=== PATIENT | female | born 1970 | race Caucasian/White ===

== ENCOUNTER 2019-07-07 12:19 | Inpatient (IN) ==
[2019-07-07] MEDS ORDERED: cefOXitin 2,000 MG in Water for inj. (sterile) 20 ML IVP ONE (12:51)
[2019-07-07] MEDS ORDERED: Albuterol 2.5 MG/3 ML NEBULIZER IH ONE (12:53)
[2019-07-07] MEDS ORDERED: Ringers Solution, Lactated 1,000 ML IVC SCH (13:00)
[2019-07-07] MEDS ORDERED: Famotidine 20 MG/2 ML VIAL IVP ONE (13:01)
[2019-07-07] MEDS ORDERED: *HR* OxyCODONE Immed Rel 5 MG TABLET PO PRN (13:01)
[2019-07-07] MEDS ORDERED: *HR* Promethazine 25 MG/ML VIAL IVP PRN ×2 (13:01→20:56)
[2019-07-07] MEDS ORDERED: Ondansetron ODT 4 MG TAB.RAPDIS SL ONE (13:01)
[2019-07-07] MEDS ORDERED: Scopolamine Patch 1.5 MG PATCH.TD72 TD ONE (13:01)
[2019-07-07] MEDS ORDERED: *HR* HYDROmorphone (PF) 1 MG/ML SYRINGE IVP PRN (13:01)
[2019-07-07] MEDS ORDERED: Acetaminophen IV 1,000 MG/100 ML INFUS..BTL IVPB ONE (13:01)
[2019-07-07] MEDS ORDERED: *HR* FentaNYL (PF) 100 MCG/2 ML VIAL IVP PRN (13:01)
[2019-07-07] MEDS ORDERED: diazePAM 5 MG TABLET PO ONE (13:01)
[2019-07-07] MEDS ORDERED: *HR* Midazolam HCl 2 MG/2 ML VIAL IVP PRN (13:01)
[2019-07-07] MEDS ORDERED: *HR* Meperidine 25 MG/ML SYRINGE IVP PRN (13:01)
[2019-07-07] MEDS ORDERED: *HR* FentaNYL (PF) 100 MCG/2 ML VIAL ONE (16:45)
[2019-07-07] MEDS ORDERED: *HR* Propofol 200 MG/20 ML VIAL IVP ONE (16:45)
[2019-07-07] MEDS ORDERED: *HR* Midazolam HCl 2 MG/2 ML VIAL ONE (16:45)
[2019-07-07] MEDS ORDERED: *HR* Succinylcholine 200 MG/10 ML VIAL IVP ONE (17:07)
[2019-07-07] MEDS ORDERED: *HR* PHENYLEPHRINE 1,000 MCG/10 ML SYRINGE IVP ONE (17:27)
[2019-07-07] MEDS ORDERED: Dexamethasone 4 MG/ML VIAL ONE (17:56)
[2019-07-07] MEDS ORDERED: Ondansetron 4 MG/2 ML VIAL ONE (17:56)
[2019-07-07] MEDS ORDERED: *HR* Rocuronium Bromide 50 MG/5 ML VIAL ONE (18:07)
[2019-07-07] MEDS ORDERED: *HR* HYDROMORPHONE 2 MG/ML VIAL ONE (19:11)
[2019-07-07] MEDS ORDERED: *HR* Metoprolol 5 MG/5 ML VIAL IVP PRN (20:56)
[2019-07-07] MEDS ORDERED: Naloxone 0.4 MG/ML INJ IVP PRN (20:56)
[2019-07-07] MEDS ORDERED: Ondansetron 4 MG/2 ML VIAL IVP PRN (20:56)
[2019-07-07] MEDS: 0.9 % Sodium Chloride 1,000 ML IVC SCH (21:44)
[2019-07-07] MEDS: Piperacillin/Tazobactam 3.375 GM in 0.9 % Sodium Chloride Mini Bag 100 ML IVPB SCH (23:20)
[2019-07-07] MEDS: *HR* OxyCODONE/APAP 5/325 TABLET PO PRN (23:22)
[2019-07-08] MEDS: *HR* OxyCODONE/APAP 5/325 TABLET PO PRN ×3 (04:33→15:30)
[2019-07-08] MEDS: 0.9 % Sodium Chloride 1,000 ML IVC SCH ×2 (05:32→13:23)
[2019-07-08 06:57] LABS: Basophils % 0.1 %; Hematocrit 39.6 % (35.3-44.9); Hemoglobin 12.7 g/dL (11.5-15.4); Immature Granulocytes % 0.2 % (0-4); Lymphocytes # 0.8 K/mcL (0.6-4.6); Lymphocytes % 9.5 %; Mean Corpuscular HGB Conc 32.1 g/dL (31.6-35.5); Mean Corpuscular Hemoglobin 29.8 pg (28.0-33.3); Mean Platelet Volume 10.4 fL (9.4-12.4); Monocytes # 0.5 K/mcL (0.0-1.3); Monocytes % 5.4 %; Neutrophils # 7.5 K/mcL (1.6-8.9); Platelet Count 254 K/mcL (140-400); Red Blood Count 4.26 M/mcL (3.82-4.97); Red Cell Distribution Width 13.1 % (11.5-14.5); Segmented Neutrophils % 84.8 %; White Blood Count 8.8 K/mcL (4.3-11.1)
[2019-07-08 07:28] LABS: BUN/Creatinine Ratio 12 (6-26); Blood Urea Nitrogen 9 mg/dL (6-20); Calcium 8.3 mg/dL (8.6-10.3); Carbon Dioxide 24 mEq/L (23-29); Chloride 106 mEq/L (98-107); Glucose 121 mg/dL (70-105); Magnesium 2.1 mg/dL (1.6-2.6); Osmolality,Calculated 290 (280-300); Phosphorous 4.3 mg/dL (2.7-4.5); Potassium 4.1 mEq/L (3.5-5.1); Sodium 140 mEq/L (136-145); eGFR For African Americans > 60 (> 60); eGFR For Non-African Americans > 60 (> 60)
[2019-07-08] MEDS ORDERED: Ondansetron 4 MG/2 ML VIAL IVP PRN (09:13)
[2019-07-08] MEDS: Pantoprazole 40 MG VIAL IVP SCH (09:17)
[2019-07-08] MEDS: Topiramate 25 MG TABLET PO SCH (09:17)
[2019-07-08] MEDS: Piperacillin/Tazobactam 3.375 GM in 0.9 % Sodium Chloride Mini Bag 100 ML IVPB SCH ×2 (09:17→15:31)
[2019-07-08] MEDS: Ketorolac 15 MG/ML VIAL IVP SCH ×3 (11:25→23:26)
[2019-07-08] MEDS ORDERED: 0.9 % Sodium Chloride 1,000 ML IVC SCH (15:57)
[2019-07-09] MEDS: *HR* OxyCODONE/APAP 5/325 TABLET PO PRN (04:04)
[2019-07-09 05:39] LABS: Basophils % 0.2 %; Eosinophils # 0.1 K/mcL (0.0-0.6); Eosinophils % 1.4 %; Hematocrit 36.1 % (35.3-44.9); Hemoglobin 11.8 g/dL (11.5-15.4); Immature Granulocytes % 0.3 % (0-4); Lymphocytes # 2.3 K/mcL (0.6-4.6); Lymphocytes % 36.6 %; Mean Corpuscular HGB Conc 32.7 g/dL (31.6-35.5); Mean Corpuscular Hemoglobin 29.5 pg (28.0-33.3); Mean Corpuscular Volume 90.3 fL (83.0-100.0); Mean Platelet Volume 9.9 fL (9.4-12.4); Monocytes # 0.4 K/mcL (0.0-1.3); Monocytes % 5.9 %; Neutrophils # 3.5 K/mcL (1.6-8.9); Platelet Count 222 K/mcL (140-400); Segmented Neutrophils % 55.6 %; White Blood Count 6.3 K/mcL (4.3-11.1)
[2019-07-09 06:00] LABS: BUN/Creatinine Ratio 7 (6-26); Blood Urea Nitrogen 5 mg/dL (6-20); Calcium 8.2 mg/dL (8.6-10.3); Carbon Dioxide 26 mEq/L (23-29); Chloride 107 mEq/L (98-107); Glucose 95 mg/dL (70-105); Osmolality,Calculated 287 (280-300); Potassium 3.4 mEq/L (3.5-5.1); Sodium 140 mEq/L (136-145); eGFR For African Americans > 60 (> 60); eGFR For Non-African Americans > 60 (> 60)
[2019-07-09] MEDS: Ketorolac 15 MG/ML VIAL IVP SCH ×2 (06:26→12:44)
[2019-07-09] MEDS: Pantoprazole 40 MG VIAL IVP SCH (08:46)
[2019-07-09] MEDS: Topiramate 25 MG TABLET PO SCH (08:46)
[2019-07-09 11:24] VITALS: BP 114/71
== END 2019-07-09 14:56 | disposition home or self-care (01) | DRG 330 ==
LOC: SAMDAY 12:19 → 3ANU 20:47
PROVIDERS: ADMIT Surgery; ATTEND Surgery